=== PATIENT | female | born 1975 | race Two or more races ===

== ENCOUNTER 2021-12-30 15:22 | Outpatient (CLI) | payer OTHER | END 2021-12-30 15:35 | disposition home or self-care (01) | LOC: EKG 15:22 → LAB 15:22 | DX: M72.2 Plantar fascial fibromatosis (principal); J30.1 Allergic rhinitis due to pollen; R11.10 Vomiting, unspecified; R11.0 Nausea; A05.9 Bacterial foodborne intoxication, unspecified; K29.30 Chronic superficial gastritis without bleeding ==

== ENCOUNTER 2022-06-09 19:13 | Inpatient (IN) | payer OTHER ==
[~2022-06-09] VITALS: Ht 160 cm; Wt 68.0 kg
== END 2022-06-11 14:12 | disposition home or self-care (01) | DRG 446 ==
LOC: ER 19:13 → MEDJ 23:01 → MEDI 23:01 → MEDJ 06-10 01:33
PROVIDERS: ADMIT Internal Medicine; ATTEND Internal Medicine
PROC: BF37ZZZ Magnetic Resonance Imaging (MRI) of Pancreas (ICD-10-PCS; principal; 2022-06-10)
DX: K80.00 Calculus of gallbladder with acute cholecystitis without obstruction (principal); K83.8 Other specified diseases of biliary tract; Z20.822 Contact with and (suspected) exposure to COVID-19

== ENCOUNTER 2022-07-18 17:41 | Emergency (ER) | payer OTHER ==
[~2022-07-18] VITALS: Ht 160 cm; Wt 65.8 kg
[2022-07-19] MEDS ORDERED: KETO10TA2 PO (01:17)
== END 2022-07-19 01:41 | disposition home or self-care (01) ==
LOC: ER 17:41
DX: K80.20 Calculus of gallbladder without cholecystitis without obstruction (principal)